=== PATIENT | male | born 2000 | race Caucasian/White ===

== ENCOUNTER 2020-10-12 11:49 | Emergency (ER) | payer OTHER ==
[~2020-10-12] VITALS: Ht 170.2 cm; Wt 90.7 kg
[2020-10-12] MEDS ORDERED: ZANAFLEX4 MG PO (13:45)
[2020-10-12] MEDS ORDERED: IBUPROFEN 800800 M1 PO (13:45)
[2020-10-12 13:53] VITALS: BP 157/94
== END 2020-10-12 13:54 | disposition home or self-care (01) ==
LOC: M.ERS 11:49
DX: S16.1XXA Strain of muscle, fascia and tendon at neck level, initial encounter (principal); S00.83XA Contusion of other part of head, initial encounter; W01.0XXA Fall on same level from slipping, tripping and stumbling without subsequent striking against object, initial encounter; Y93.89 Activity, other specified; Y92.89 Other specified places as the place of occurrence of the external cause; Y99.8 Other external cause status